=== PATIENT | male | born 1985 | race Caucasian/White ===

== ENCOUNTER → 2017-03-14 | Outpatient (CLI) | payer BC ==
[2016-09-22 10:09] VITALS: BP 136/73
[~2017-03-14] MED LIST: NAPR500T PO
--- NOTE | 2017-03-14 11:47 | KCIC ---
Procedure: MRI of the right ankle HISTORY: Right ankle instability. Swelling. Injury September 2016 to the lateral aspect of the ankle. Continued medial and lateral pain. FINDINGS: The peroneal tendons are intact. High-grade tear of anterior talofibular, calcaneofibular and posterior talofibular ligaments. The anterior inferior tibiofibular ligament demonstrates mild thickening and irregularity compatible with scarring but no acute tear or discontinuity is suspected. Posterior tibial and flexor tendons are intact. High-grade tear of the deep fibers of the deltoid ligament. Anterior tibial and extensor tendons are intact. Achilles tendon intact. No acute plantar fasciitis. Subtalar joints are intact. Tarsal sinus is intact. Subchondral marrow edema at the lateral talar dome with a small osteochondral fracture measuring about 5 mm AP by 5 mm wide. Mild marrow edema at the medial malleolus compatible with a mild or resolving bone marrow contusion. No large joint effusion. Small cyst or ganglion identified at the posterior tibiotalar joint. IMPRESSION: 1. High-grade tearing of lateral ankle ligaments. 2. More chronic appearing scarring of the anterior inferior tibiofibular ligament. 3. High-grade tear of the deep fibers of the deltoid ligament. 4. Osteochondral fracture of the lateral talar dome. No evidence of displaced or unstable osteochondral fragment at this time. Electronically signed by: Chris Li MD (03/14/2017 11:44 AM)
== END | disposition home or self-care (01) ==
LOC: KCIC MRI 08:26
PROVIDERS: ATTEND Physician Assistant Medical
DX: S93.491A Sprain of other ligament of right ankle, initial encounter (principal); X58.XXXA Exposure to other specified factors, initial encounter; Y93.89 Activity, other specified; Y92.89 Other specified places as the place of occurrence of the external cause; Y99.9 Unspecified external cause status
CPT/HCPCS: 73721